=== PATIENT | male | born 1995 | race Caucasian/White ===

== ENCOUNTER 2018-09-12 18:57 | Emergency (ER) | payer BC ==
--- NOTE | 2018-09-12 19:15 | EDM.PDOC ---
ED HPI GENERAL MEDICAL PROBLEM - General Chief Complaint: General Stated Complaint: FLU LIKE SYMPTOMS Time Seen by Provider: 09/12/18 19:09 Source of Information: Reports: Patient History Limitations: Reports: No Limitations - History of Present Illness INITIAL COMMENTS - FREE TEXT/NARRATIVE: 22-year-old male attends the ED with acute onset of upper respiratory tract symptoms. He states shortly after going to work this morning he developed generalized body aches headache, and fever. Also has developed a paroxysmal relatively nonproductive cough. States his throat is little scratchy. 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 Denies any nausea vomiting or diarrhea. He states many of his coworkers have been recently diagnosed with influenza. He did not have a flu shot. Onset: Today Onset Date: 09/12/18 Onset Time: 08:00 Duration: Hour(s): Location: Reports: Chest (Paroxysmal nonproductive cough with mild sore throat) , Generalized Quality: Reports: Other Severity: Moderate (Generalized body ache and headache) Improves with: Reports: None Worsens with: Reports: None Context: Denies: Activity, Exercise, Lifting, Sick Contact, Trauma Associated Symptoms: Reports: Cough, cough w sputum, Fever/Chills, Headaches, Malaise. Denies: No Other Symptoms, Confusion, Chest Pain (Scant sputum production), Loss of Appetite, Nausea/Vomiting, Rash, Seizure, Shortness of Breath, Syncope Treatments MIXED [employer]IMAL [employer]ETERINARIAN: Reports: Other (see below) Generalized Pain Score (Numeric/FACES): 4 - Related Data Allergies Allergy/AdvReac Type Severity Reaction Status Date / Time No Known Allergies Allergy Verified 09/12/18 19:06 Home Meds: Home Meds Hydrocodone/Chlorphen P-Stirex [Tussionex Pennkinetic Susp] 5 ml PO Q12H PRN # 60 ml 09/12/18 [Rx] Oseltamivir [Tamiflu] 75 mg PO BID #10 cap 09/12/18 [Rx] Past Medical History Genitourinary History: Reports: Other (See Below) Other Genitourinary History: kidney stones - Past Surgical History HEENT Surgical History: Reports: Tonsillectomy Social & Family History - Family History Family Medical History: Noncontributory - Caffeine Use Caffeine Use: Reports: Soda - Living Situation & Occupation Living situation: Reports: Occupation: Employed ED ROS GENERAL - Review of Systems Review Of Systems: See Below Constitutional: Reports: Fever, Chills, Malaise, Weakness (Starting today) HEENT: Reports: Throat Pain (States his throat feels scratchy.) Respiratory: Reports: Cough, Sputum. Denies: Wheezing, Pleuritic Chest Pain, Hemoptysis (Scans sputum production) Cardiovascular: Reports: No Symptoms Endocrine: Reports: Fatigue GI/Abdominal: Reports: No Symptoms : Reports: No Symptoms Musculoskeletal: Reports: Muscle Pain Skin: Reports: No Symptoms (Generalized myalgia) Neurological: Reports: No Symptoms Psychiatric: Reports: No Symptoms Hematologic/Lymphatic: Reports: No Symptoms Immunologic: Reports: No Symptoms ED EXAM, GENERAL - Physical Exam Exam: See Below Exam Limited By: No Limitations General Appearance: Alert, WD/WN, No Apparent Distress, Other (Patient is warm to palpation. Nurses record his temperature 36.8 but he is much warmer than this.) Eye Exam: Bilateral Eye: Normal Inspection Ears: Other (Physical illness and slight fluid behind his left tympanic membrane. The right is normal.) Throat/Mouth: Other Head: Atraumatic, Normocephalic Neck: Normal Inspection, Supple, Non-Tender, Full Range of Motion, Lymphadenopathy (L) (Slight submandibular adenopathy on the left side). No: Lymphadenopathy (R) Respiratory/Chest: No Respiratory Distress, Lungs Clear, Normal Breath Sounds, No Accessory Muscle Use Cardiovascular: Normal Peripheral Pulses, Regular Rate, Rhythm, No Edema, No Gallop, No Murmur, No Rub Extremities: Normal Inspection, Normal Range of Motion, Non-Tender, No Pedal Edema Neurological: Alert, Oriented, CN II-XII Intact, Normal Cognition Psychiatric: Normal Affect, Normal Mood Skin Exam: Warm, Dry, Intact, Normal Color, No Rash Course - Vital Signs Last Recorded V/S: Last Vital Signs Temp 36.8 C 09/12/18 19:06 Pulse 76 09/12/18 19:06 Resp 18 09/12/18 19:06 BP 138/79 09/12/18 19:06 Pulse Ox 98 09/12/18 19:06 - Radiology Interpretation Free Text/Narrative:: 22-year-old male attends the ED with acute onset of illness this morning shortly after going to work. Developed upper spine to tract symptoms with mild scratchy throat and a paroxysmal nonproductive cough. Has generalized myalgia such with a headache. Has not eaten all day but states he is hungry. He did not receive a flu shot. States many of his coworkers have been recently diagnosed with influenza. Examination reveals no signs of a bacterial infection. Clinically has SYMPTOMS OF INFLUENZA. HE WILL BE TREATED THEREFORE WITH TAMIFLU 75 MG TWICE A DAY FOR THE NEXT 10 DAYS. COUGH SYRUP WITH TUSSIONEX COUGH SYRUP 5 MILS EVERY 12 HOURS. FOR COUGH RELIEF. TINEA MOTRIN 600 MG EVERY 6 HOURS NEEDED FOR FEVER, CHILLS, HEADACHE, BODY ACHES. Departure - Departure Time of Disposition: 19:15 Disposition: Home, Self-Care 01 Condition: Fair Clinical Impression: Influenza - Discharge Information *PRESCRIPTION DRUG MONITORING PROGRAM REVIEWED*: Not Applicable *COPY OF PRESCRIPTION DRUG MONITORING REPORT IN PATIENT NELSON: Not Applicable Prescriptions: Hydrocodone/Chlorphen P-Stirex [Tussionex Pennkinetic Susp] 5 ml PO Q12H PRN # 60 ml PRN Reason: cough relief Oseltamivir [Tamiflu] 75 mg PO BID #10 cap Instructions: Influenza, Adult, [id number] Referrals: PCP,None [Primary Care Provider] - Forms: ED Department Discharge Additional Instructions: Evaluation the emergent tonight in regards to acute onset of upper respiratory tract infection with harsh paroxysmal relatively nonproductive cough. Generalized body aches. Headache. Examination does not show any evidence of bacterial infection. Clinically you have all the signs and symptoms of influenza. YOU INDICATED MANY OF YOUR COWORKERS HAVE BEEN DIAGNOSED WITH INFLUENZA RECENTLY. TREATMENT IS THEREFORE ANTIVIRAL MEDICATION TAMIFLU 75 MG TWICE DAILY FOR THE NEXT 10 DAYS STARTING TONIGHT. Motrin 600 mg every 6 hours daily for relief of headache, body ache and fever. COUGH SYRUP IS TO BE TUSSIONEX COUGH SYRUP 5 MILS EVERY 12 HOURS NECESSARY FOR COUGH RELIEF. Plan on taking the medication a good hour before laying down for the night as it takes a good hour to work. Can be taken with food. Considered contagious to others through cough droplets per week from the time symptoms develop.
== END 2018-09-12 19:35 | disposition home or self-care (01) ==
LOC: JD.ED 18:57
DX: J11.1 Influenza due to unidentified influenza virus with other respiratory manifestations (principal); F17.210 Nicotine dependence, cigarettes, uncomplicated
CPT/HCPCS: 99283